=== PATIENT | male | born 1970 | race Hispanic/Latino ===

== ENCOUNTER → 2018-11-13 | Day surgery (SDC) | payer BC ==
[2018-11-12 18:57] LABS: BASOPHILS # (AUTO) 0.1 (0.0-0.1); BASOPHILS % 0.7 % (0.0-1.0); EOSINOPHILS # (AUTO) 0.3 (0.0-0.4); EOSINOPHILS % 3.8 % (0.0-6.0); HEMATOCRIT 43.5 % (38.2-49.6); HEMOGLOBIN 15.4 g/dL (14.0-18.0); LYMPHOCYTES # (AUTO) 2.1 (1.0-3.2); LYMPHOCYTES % 28.7 % (18.0-39.1); MEAN CORPUSCULAR HEMOGLOBIN 30.3 pg (28-32); MEAN CORPUSCULAR HGB CONC 35.4 g/dL (31-35); MEAN CORPUSCULAR VOLUME 85.6 fL (81-99); MONOCYTES # (AUTO) 0.6 (0.2-0.8); MONOCYTES % 8.6 % (4.4-11.3); NEUTROPHILS # (AUTO) 4.3 (2.1-6.9); NEUTROPHILS % 57.8 % (38.7-80.0); PLATELET COUNT 219 x10e3/uL (140-360); RED BLOOD COUNT 5.08 x10e6/uL (4.3-5.7)
[2018-11-12 19:11] LABS: INR 0.91; PROTHROMBIN TIME 13.1 seconds (11.9-14.5)
[2018-11-12 19:18] LABS: ALANINE AMINOTRANSFERASE 56 IU/L (0-55); ALBUMIN 4.2 g/dL (3.5-5.0); ALBUMIN/GLOBULIN RATIO 1.2 (0.8-2.0); ALKALINE PHOSPHATASE 107 IU/L (40-150); ANION GAP 13.7 mmol/L (8-16); BLOOD UREA NITROGEN 11 mg/dL (7-26); BUN/CREATININE RATIO 14 (6-25); CALCIUM 9.7 mg/dL (8.4-10.2); CARBON DIOXIDE 28 mmol/L (22-29); CHLORIDE 102 mmol/L (98-107); EST GLOMERULAR FILTRATION RATE > 60 ML/MIN (60-); GLUCOSE 94 mg/dL (74-118); POTASSIUM 3.7 mmol/L (3.5-5.1); SODIUM 140 mmol/L (136-145)
[2018-11-13] VITALS (8 sets, daily range): BP systolic 118–133; BP diastolic 70–87
[~2018-11-13] VITALS: Ht 167.6 cm; Wt 91.6 kg
[~2018-11-13] MED LIST: ALPRAZOLAM 0.5 MG TAB ONE; ATORVASTATIN CA20 MG PO; DICLOFENAC SOD100 MG PO; DIPHENHYDRAMINE HCL 25 MG CAP ONE; FENTANYL CITRATE/PF 100MCG/2 ML INJ ONE; HEPARIN SOD (PORCINE) 1000 UNIT/ML 30ML ONE; HEPARIN SOD/SOD CHLORIDE 2,000 ML ONE; IOPAMIDOL 370 MG/ML 200 ML INFUS..BTL INJ ONE; LIDOCAINE HCL 2% LOCAL 20 ML VIAL ONE; LOSARTAN-HCTZ1 EAC2 PO; MIDAZOLAM HCL 2 MG/2 ML VIAL ONE; NITROGLYCERIN/D5W 200 MCG/ML 250 ML ONE; PANTOPRAZOLE SO40 MG PO; SODIUM CHLORIDE 0.9% 1000ML 1,000 ML ONE; VERAPAMIL HCL 2.5 MG/ML 2 ML VIAL ONE
--- NOTE | 2018-11-13 11:30 | NUR ---
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 Received report form Mary PÉREZ. [facility] DR Herndon via Rt TR band approach. To f/o 2wks.Back to baseline orientation. ELIU Resp shallow and regular. 97% on room air. Denies CP or SOB. Abdomen soft and non tender denies necessity to defecate or urinate.Bilateral femoral pulses present. Off po intake tolerates well.Rt TR band site w/o s/s bleeding intact. Titration starts at [address] Herndon with 11cc in balloon.Will be dc today.Family reviewed dc planning and has copies of POC.Knows importance to f/o in two weeks.
--- NOTE | 2018-11-13 11:35 | NUR ---
1135am -3c TR band ,no oozing ,sats 97% ,positive radial pulse,(Positve 7cc) 1150am -3cc Tr Band , no oozing ,sats 97%,positive radial pulse,(Positive 4cc) 1205 -3cc TR Band ,no oozing ,sats 97%,positive radial pulse,(Positive 1cc) 1220pm TR band titration completed no oozing, dressing applied sterile 2x2 and Family franco at bs and papers signed for DC.
--- NOTE | 2018-11-13 15:00 | NUR ---
1500 Iv removed site w/o s/s infiltration. Pt tolerating po intake. Assist to private car with [facility] employee escort. Has dc paper aware of importance of f/o up care. TR band site w/o s/s oozing radial pulse adequate. Dressing dry and intact on arm board requested to keep splint on till tomorrow with shower
--- NOTE | 2019-01-02 23:18 | Operative Report ---
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 PROCEDURES PERFORMED: 1. Left heart catheterization, selective coronary angiography, left ventriculography. 2. Deployment of right wrist transradial band. COMPLICATIONS: None. RECOMMENDATIONS: Medical therapy. DESCRIPTION OF PROCEDURE: Access obtained in the right radial artery. A 5-Yoruba sheath was placed. Diagnostic coronary angiogram revealed mild coronary artery disease, approximately 20% luminal stenosis diffusely in the circumflex and right coronary arteries. Left anterior descending artery had proximal 50% stenosis. LV ejection fraction 65%. LV end-diastolic pressure 12. No gradient across the aortic valve on pullback. Right wrist TR band was applied. Guide and sheath removed. Patient discharged home same day. Job#: [id number]
== END | disposition home or self-care (01) ==
LOC: CATH LAB 09:27
PROVIDERS: ATTEND Internal Medicine Interventional Cardiology
DX: I25.118 Atherosclerotic heart disease of native coronary artery with other forms of angina pectoris (principal); E78.5 Hyperlipidemia, unspecified; I10 Essential (primary) hypertension; Z01.810 Encounter for preprocedural cardiovascular examination; Z01.812 Encounter for preprocedural laboratory examination; Z68.32 Body mass index [BMI] 32.0-32.9, adult
CPT/HCPCS: 36415; 80053; 85025; 85610; 93005; 93458; J1644; J2001; J2250; J7030; Q9967; C1887